=== PATIENT | male | born 1975 | race Two or more races ===

== ENCOUNTER → 2021-03-04 | Outpatient (CLI) | payer OTHER ==
[~2021-03-04] MED LIST: IOHEXOL 350 MG/ML 100ML IJ ONE
[2021-03-04 10:26] LABS: BUN/Creatinine Ratio 9.6; Calcium 9.2 mg/dL (8.5-10.1); Potassium 4.8 mmol/L (3.5-5.1)
== END | disposition home or self-care (01) ==
LOC: CT 09:31
DX: R06.02 Shortness of breath (principal)
CPT/HCPCS: 36415; 71275; 80048; Q9967